=== PATIENT | female | born 1985 | race Two or more races ===

== ENCOUNTER 2024-10-31 22:29 | Inpatient (IN) | payer BC, OTHER ==
[~2024-10-31] VITALS: Ht 149.9 cm; Wt 67.1 kg
[2024-10-31] MEDS: hydrALAZINE HCL 20 MG/ML VL IV ONE (23:00)
[2024-10-31 23:18] LABS: Basophils # (auto) 0.1 10 ^3/uL (0-0.2); Basophils % (auto) 1.5 % (0.0-2.0); Eosinophils # (auto) 0.3 10 ^3/uL (0-0.8); Hematocrit 43.9 % (36.0-46.0); Hemoglobin 14.7 g/dL (12.2-16.2); Lymphocytes # (auto) 2.3 10 ^3/uL (0.4-5.4); Lymphocytes % (auto) 29.4 % (10.0-50.0); Mean Corpuscular Hemoglobin 28.3 pg (28.0-32.0); Mean Corpuscular Hgb Conc. 33.5 g/dL (32.0-36.0); Mean Corpuscular Volume 84.4 fL (80.0-100.0); Monocytes # (auto) 0.8 10 ^3/uL (0-1.3); Monocytes % (auto) 9.7 % (0.0-12.0); Neutrophils # (auto) 4.4 10 ^3/uL (1.6-8.6); Neutrophils % (auto) 55.4 % (37.0-80.0); Nucleated Red Blood Cells % 0.2 %; Platelet Count (auto) 272 10^3/uL (140-450); Red Cell Distribution Width 13.4 % (11.8-14.3); White Blood Cell 7.9 10^3/uL (4.4-10.8)
[2024-10-31 23:30] VITALS: PULSE 89; RESP 96; O2SAT 96
[2024-10-31 23:30] LABS: Alanine Aminotransferase 30 U/L (7-40); Anion Gap 9 (5-15); Aspartate Aminotransferase 14 U/L (13-40); BUN/Creatinine Ratio 18.1 (10.0-20.0); Blood Urea Nitrogen 13 mg/dL (9-23); Calcium 10.2 mg/dL (8.7-10.4); Carbon Dioxide 28 mmol/L (20-31); Chloride 104 mmol/L (98-107); Potassium 3.9 mmol/L (3.5-5.1); Sodium 141 mmol/L (136-145); Total Protein 7.4 g/dL (5.7-8.2)
[2024-10-31] MEDS: KETOROLAC TROMETH 30 MG/ML 1ML VIAL IV ONE (23:30)
[2024-10-31 23:31] LABS: Albumin 4.7 g/dL (3.2-4.8); Bilirubin, Total 0.4 mg/dL (0.2-1.0)
[2024-10-31 23:32] LABS: Alkaline Phosphatase 142 U/L (46-116); Glucose 255 mg/dL (74-106); Lipase 54 U/L (12-53)
--- NOTE | 2024-10-31 23:42 | DVH ---
CLINICAL HISTORY: abd pain TECHNIQUE: CT of the abdomen and pelvis was performed without intravenous contrast. This exam was per formed according to our departmental dose optimization program. Up-to-date CT equipment and radiation dose reduction techniques are utilized as appropriate. COMPARISON: None FINDINGS: Lower Thorax: There is a pneumatocele within the left lower lobe. The lungs are otherwise clear. Norm al-sized heart. Liver and Biliary system: Mild hepatomegaly with the right lobe of the liver measuring 19 cm cranioca udal. Otherwise grossly unremarkable liver. There is mild dilatation of the gallbladder measuring 4.3 cm transverse with cholelithiasis there is no biliary ductal dilatation Spleen: Unremarkable. Adrenal Glands and Kidneys: Unremarkable. Pancreas and Retroperitoneum: Unremarkable. Aorta and Major Vessels: Aortoiliac vessels are normal in caliber with trace calcified atheroscleroti c plaque. Bowel, Mesentery and Peritoneal space: Normal caliber small and large bowel. There is no free air or fluid collection. Pelvis: Unremarkable. Abdominal wall and Osseous Structures: No destructive osseous lesion. Minor lower thoracic and lumba r spondylosis. IMPRESSION: 1. Mild dilatation of the gallbladder with cholelithiasis. If there is clinical concern for acute ch olecystitis, correlate with right upper quadrant ultrasound. 2. Mild hepatomegaly.
[2024-11-01 00:35] LABS: Urine Amorphous Crystal FEW /hpf (None Seen); Urine Bacteria FEW /hpf (None Seen); Urine Blood 2+ /uL (Negative); Urine Clarity Clear (Clear); Urine Color Colorless (Yellow); Urine Protein, UAD Negative (Negative); Urine Specific Gravity 1.015 (1.001-1.035); Urine Squamous Epithelial Cell MOD /hpf (<5); Urine Urobilinogen Normal (Negative); Urine WBC 3 /HPF (0-5); Urine pH 6.5 (5.0-9.0)
--- NOTE | 2024-11-01 01:07 | ED.PDOC ---
HPI Comments Patient presents to the emergency department with right upper quadrant abdominal pain radiates to her back shoulder blade. States it started 1 hour ago. Reports having pus has been get a for dinner. No prior history of gallstones or cholelithiasis. Does report having appendix removed. Patient reports 10 10 pain nothing helps it. It having nausea and vomiting. Upon assessment patient was blood pressure is 230s over 120s. Patient reports no headache but having hard time focusing due to her abdominal pain. No prior history of hypertension or cardiac problems. Chief Complaint: Abdominal Pain Time Seen by MD: 22:39 Reviewed Notes: Nurses Notes Allergies: Coded Allergies: Morphine (Verified Allergy, Unknown, 10/31/24) Information Source: Patient Mode of Arrival: Ambulatory Past Medical History PAST MEDICAL HISTORY: Denies Surgical History: Appendectomy, Denies all surgeries [employer] MENDER History: No Pertinent [employer] M[employer]ER History Constitutional: denies: chills, diaphoresis, fatigue, fever, malaise, sweats, weakness, others EENTM: denies: blurred vision, double vision, ear bleeding, ear discharge, ear drainage, ear pain, ear ringing, eye pain, eye redness, hearing loss, mouth pain, mouth swelling, nasal discharge, nose bleeding, nose congestion, nose pain, photophobia, tearing, throat pain, throat swelling, voice changes, others Respiratory: denies: cough, hemoptysis, orthopnea, SOB at rest, shortness of breath, SOB with excertion, stridor, wheezing, others Cardiovascular: denies: chest pain, dizzy spells, diaphoresis, Dyspnea on exertion, edema, irregular heart beat, left arm pain, lightheadedness, palpitations, PND, syncope, others Gastrointestinal: reports: abdominal pain, nausea, vomiting; denies: abdomen distended, blood streaked bowels, constipated, diarrhea, dysphagia, difficulty swallowing, hematemesis, melena, poor appetite, poor fluid intake, rectal ble eding, rectal pain, others Genitourinary: denies: abnormal vagina bleeding, burning, dyspareunia, dysuria, flank pain, frequency, hematuria, incontinence, pain, , vagina discharge, urgency, others Neurological: denies: dizziness, fainting, headache, left sided numbness, left sided weakness, numbness, paresthesia, pre-existing deficit, right sided numbness, right sided weakness, seizure, speech problems, tingling, tremors, weakness, others Musculoskeletal: denies: back pain, gout, joint pain, joint swelling, muscle pain, muscle stiffness, neck pain, others Integumetry: denies: bruises, change in color, change in hair/nails, dryness, laceration, lesions, lumps, rash, wounds, others Allergic/Immunocompromised: denies: Difficulty Healing, Frequent Infections, Hives, Itching, others Hematologic/Lymphatic: denies: anemia, blood clots, easy bleeding, easy bruising, swollen glands, others Physical Exam General Appearance: Normal, Severe Distress HEENT: Normal ENT Inspection, Pharynx Normal, TMs Normal Neck: Full Range of Motion, Non-Tender, Normal, Normal Inspection Respiratory: Chest Non-Tender, Lungs Clear, No Accessory Muscle Use, No Respiratory Distress, Normal Breath Sounds Cardiovascular: No Edema, No JVD, No Murmur, No Gallop, Normal Peripheral Pulses, Regular Rate/Rhythm Breast Exam: Deferred Gastrointestinal: No Organomegaly, No Pulsatile Mass, Normal Bowel Sounds, RUQ (Tender to palpation), Soft Genitalia: Deferred Pelvic: Deferred Rectal: Deferred Extremities: No calf tenderness, Normal capillary refill, Normal inspection, Normal range of motion, Non-tender, No pedal edema Musculoskeletal : Apperance: Normal Neurologic: Alert, form stripper II-XII nml as Tested, No Motor Deficits, Normal Affect, Normal Mood, No Sensory Deficits Cerebellar Function: Normal Reflexes: Normal Skin: Dry, Normal Color, Warm Lymphatic: No Adenopathy Was a procedure done? Was a procedure done?: No CP Differential Dx Differential Diagnosis: Other Differential Diagnosis: HTN Essential, HTN Encephalopathy Differential Diagnosis: Aortic dissection, Chest Wall Pain, Cholelithiasis, Costochondritis X-Ray, Labs, Meds, VS Vital Signs Date Time Temp Pulse Resp B/P (MAP) Pulse Ox O2 Delivery O2 Flow Rate FiO2 10/31/24 23:00 125/90 10/31/24 22:54 68 10/31/24 22:46 98.2 76 20 229/128 (161) 100 98.2 Lab Test 11/01/24 00:12 10/31/24 23:04 10/31/24 22:45 Range/Units Troponin I High Sensitivity < 3 L < 3 L </=34 ng/L White Blood Count 7.9 4.4-10.8 10^3/uL Red Blood Count 5.20 4.0-5.20 10^6/uL Hemoglobin 14.7 12.2-16.2 g/dL Hematocrit 43.9 36.0-46.0 % Mean Corpuscular Volume 84.4 80.0-100.0 fL Mean Corpuscular Hemoglobin 28.3 28.0-32.0 pg Mean Corpuscular Hemoglobin Concent 33.5 32.0-36.0 g/dL Red Cell Distribution Width 13.4 11.8-14.3 % Platelet Count 272 140-450 10^3/uL Mean Platelet Volume 7.8 6.9-10.8 fL Neutrophils (%) (Auto) 55.4 37.0-80.0 % Lymphocytes (%) (Auto) 29.4 10.0-50.0 % Monocytes (%) (Auto) 9.7 0.0-12.0 % Eosinophils (%) (Auto) 4.0 0.0-7.0 % Basophils (%) (Auto) 1.5 0.0-2.0 % Neutrophils # (Auto) 4.4 1.6-8.6 10 ^3/uL Lymphocytes # (Auto) 2.3 0.4-5.4 10 ^3/uL Monocytes # (Auto) 0.8 0-1.3 10 ^3/uL Eosinophils # (Auto) 0.3 0-0.8 10 ^3/uL Basophils # (Auto) 0.1 0-0.2 10 ^3/uL Nucleated Red Blood Cells 0.2 % Sodium Level 141 136-145 mmol/L Potassium Level 3.9 3.5-5.1 mmol/L Chloride Level 104 98-107 mmol/L Carbon Dioxide Level 28 20-31 mmol/L Anion Gap 9 5-15 Blood Urea Nitrogen 13 9-23 mg/dL Creatinine 0.72 0.550-1.02 mg/dL Glomerular Filtration Rate Calc 108 >90 mL/min BUN/Creatinine Ratio 18.1 10.0-20.0 Serum Glucose 255 H 74-106 mg/dL Calcium Level 10.2 8.7-10.4 mg/dL Total Bilirubin 0.4 0.2-1.0 mg/dL Aspartate Amino Transferase (AST) 14 13-40 U/L Alanine Aminotransferase (ALT) 30 7-40 U/L Alkaline Phosphatase 142 H 46-116 U/L Total Protein 7.4 5.7-8.2 g/dL Albumin 4.7 3.2-4.8 g/dL Lipase 54 H 12-53 U/L Urine Color Colorless Yellow Urine Clarity Clear Clear Urine pH 6.5 5.0-9.0 Urine Specific [place] 1.015 1.001-1.035 Urine Protein Negative Negative Urine Ketones Negative Negative Urine Blood 2+ H Negative /uL Urine Nitrite Negative Negative Urine Bilirubin Negative Negative Urine Urobilinogen Normal Negative mg/dL Urine Leukocyte Esterase Negative Negative /uL Urine RBC 3 0 - 4 /hpf Urine Microscopic WBC 3 0-5 /HPF Urine Squamous Epithelial Cells Mod <5 /hpf Urine Amorphous Crystals Few None Seen /hpf Urine Bacteria Few H None Seen /hpf Urine Glucose 3+ H Normal mg/dL Current Medications Medications (Trade) Dose Ordered Sig/Maddison Route Start Time Stop Time Status Last Admin Hydralazine HCl (Apresoline Injection) 15 mg ONCE ONCE IV 10/31/24 23:00 10/31/24 23:01 DC 10/31/24 23:00 Ketorolac Tromethamine (Toradol Injection) 30 mg ONCE ONCE IV 10/31/24 23:30 10/31/24 23:34 DC 10/31/24 23:30 X-Ray, Labs, Meds, VS Comment Patient given 15 mg hydralazine with good effect Patient reports pain 6/10 after Toradol Patient will be admitted for hypertensive crisis, recommend cardiology consult in the morning Patient be given [place]orte five for pain relief Time of 1ST Reevaluation: 01:07 Reevaluation 1ST: Improved Patient Education/Counseling: Diagnosis, Treatment Family Education/Counseling: Diagnosis Departure 1 Departure Time of Disposition: 01:06 Impression: Primary Impression: Hypertensive crisis without congestive heart failure Additional Impression: Cholelithiasis Qualified Codes: K80.20 - Calculus of gallbladder without cholecystitis without obstruction Disposition: ADMITTED INPATIENT Condition: Stable Discharged With: Self Critical Care Note Critical Care Time?: No Stability Stability form required: No Heart Score Heart Score: Heart Score Response (Comments) Value History N/A 0 EKG N/A 0 Age N/A 0 Risk Factors N/A 0 Troponin N/A 0 Total 0 ABEBA GIORDANO Nov 01, 2024 01:07
[2024-11-01] MEDS: PANTOPRAZOLE 40 MG/10 ML VIAL INJ IV ONE (03:15)
[2024-11-01] MEDS: LISINOPRIL 5 MG TAB PO ONE (03:15)
[2024-11-01] MEDS ORDERED: ONDANSETRON HCL 4 MG/2 ML VIAL IV PRN (03:15)
[2024-11-01] MEDS ORDERED: DEXTROSE (50%) 50ML SYRG IV PRN (03:15)
[2024-11-01] MEDS: SODIUM CHLORIDE 0.9% 1,000 ML IV SCH (03:15)
[2024-11-01] MEDS: SODIUM CHLORIDE 0.9% 1,000 ML IV ONE (03:15)
[2024-11-01] MEDS ORDERED: HYDROcodone-ACET 5/325MG TAB PO PRN (03:15)
[2024-11-01] MEDS: KETOROLAC TROMETH 30 MG/ML 1ML VIAL IV ONE (03:15)
--- NOTE | 2024-11-01 03:28 | DVHHPRES ---
History of Present Illness Resident Creating Document: KRISTINE TAYLOR RESDIENT History of Present Illness 38-year-old female with past medical history of diabetes and hypertension came to the hospital due to abdominal pain since 1 hours before admission. She has right upper quadrant pain radiating into the back, counseled, 10/10, and burning in nature with no exacerbating or relieving factor. She also reports nausea. She denies, fever, chest pain, shortness of breath, or any bladder or bowel habits changes. She has history of diabetes type 2, previously was taking insulin, oral medicine and Ozempic but due to insurance changes taking no medicine at the moment. PMHx: Diabetes type 2 and hypertension PSHx: No significant Family history: Significant for premature coronary artery disease in father, and hypotension with diabetes in mother Social history: Drinks socially, denies any other drug use Home medication: Losartan, due to insurance changes has lost diabetic medicine (Ozempic) Allergic history: Morphine (upon using morphine develops hives and itching) Review of Systems Review of Systems General: patient denies fever, fatigue, weaknes, sweating, any recent changes in appetite and weight HEENT: No headaches, visiual changes, hearing loss, tinnitus, nasal congestion and discharge, and sore throat. Cardiovascular: Denies chest pain, palpitations, dyspnea on exertion, orthopnea, or claudication. Respiratory: No cough, and wheezing. Gastrointestinal: Reports nausea and abdominal pain Genitourinary: No dysuria, hematuria, discharge, frequency, urgency, nocturia, incontinence, and urinary retention. Endocrine: No heat or cold intolerance, polydipsia, polyuria, and polyphagia. Neurological: No dizziness, extremity weakness and numbness, tremors, gait disturbance, seizures, and memory impairment. Psychiatric: Denies depression, anxiety,or insomnia. Musculoskeletal: Denies neck pain, stiffness and swelling, back pain, muscle weakness, joint pain, stiffness, swelling, or limited range of motion. Skin: No rashes, itching, skin lesion, changes in hair, nail, skin texture and breast. Hematologic/Lymphatic: Denies easy bruising, bleeding tendencies, or lymph node enlargement. Allergies: Coded Allergies: Morphine (Verified Allergy, Unknown, 10/31/24) Medications Current Medications Medications Dose Ordered Sig/Maddison Route Start Time Stop Time Status Last Admin Dose Admin Acetaminophen/ Hydrocodone Bitart 1 tab Q4HP PRN PO 11/01/24 03:15 UNV Ondansetron HCl 4 mg Q4HP PRN IV 11/01/24 03:15 Enoxaparin Sodium 40 mg DAILY SC 11/01/24 10:00 Sodium Chloride 1,000 ml @ 75 mls/hr [id number] IV 11/01/24 03:15 Ketorolac Tromethamine 15 mg Q6HPRN PRN IV 11/01/24 03:15 11/06/24 03:14 Lisinopril 10 mg DAILY PO 11/02/24 10:00 Pantoprazole Sodium 40 mg DAILY IV 11/02/24 10:00 Diagnostic Test (Pha) 1 strip IQ4HR 11/01/24 04:00 Insulin Human Regular IQ4HR SC 11/01/24 04:00 Dextrose 50 ml UD PRN IV 11/01/24 03:15 Exam Vital Signs Vital Signs Date Time Temp Pulse Resp B/P (MAP) Pulse Ox O2 Delivery O2 Flow Rate FiO2 11/01/24 00:00 71 10/31/24 23:00 125/90 10/31/24 22:46 98.2 20 100 98.2 Exam General Appearance: Alert, Oriented X3, Cooperative, No acute distress HEENT: Atraumatic, PERRLA, EOMI, Mucous membrane moist/pink Respiratory: Clear to auscultation, Normal air movement Cardiovascular: Regular rate, Normal S1, Normal S2, No murmurs, no chest wall tenderness Abdominal: Abdominal tenderness with negative Olsen sign Extremities: No clubbing, No cyanosis, No edema, Normal pulses, No tenderness/swelling Skin: No rashes, No breakdown, No significant lesion Neuro: Normal gait, Normal speech, Strength at 5/5 X4 ext, Normal tone, Sensation intact, Cranial nerves 3-12 NL, Reflexes 2+ Psych/Mental Status: Mental status NL, Mood NL Labs/Xrays Labs Test 11/01/24 00:12 10/31/24 23:04 10/31/24 22:45 Range/Units Troponin I High Sensitivity < 3 L </=34 ng/L White Blood Count 7.9 4.4-10.8 10^3/uL Red Blood Count 5.20 4.0-5.20 10^6/uL Hemoglobin 14.7 12.2-16.2 g/dL Hematocrit 43.9 36.0-46.0 % Mean Corpuscular Volume 84.4 80.0-100.0 fL Mean Corpuscular Hemoglobin 28.3 28.0-32.0 pg Mean Corpuscular Hemoglobin Concent 33.5 32.0-36.0 g/dL Red Cell Distribution Width 13.4 11.8-14.3 % Platelet Count 272 140-450 10^3/uL Mean Platelet Volume 7.8 6.9-10.8 fL Neutrophils (%) (Auto) 55.4 37.0-80.0 % Lymphocytes (%) (Auto) 29.4 10.0-50.0 % Monocytes (%) (Auto) 9.7 0.0-12.0 % Eosinophils (%) (Auto) 4.0 0.0-7.0 % Basophils (%) (Auto) 1.5 0.0-2.0 % Neutrophils # (Auto) 4.4 1.6-8.6 10 ^3/uL Lymphocytes # (Auto) 2.3 0.4-5.4 10 ^3/uL Monocytes # (Auto) 0.8 0-1.3 10 ^3/uL Eosinophils # (Auto) 0.3 0-0.8 10 ^3/uL Basophils # (Auto) 0.1 0-0.2 10 ^3/uL Nucleated Red Blood Cells 0.2 % Sodium Level 141 136-145 mmol/L Potassium Level 3.9 3.5-5.1 mmol/L Chloride Level 104 98-107 mmol/L Carbon Dioxide Level 28 20-31 mmol/L Anion Gap 9 5-15 Blood Urea Nitrogen 13 9-23 mg/dL Creatinine 0.72 0.550-1.02 mg/dL Glomerular Filtration Rate Calc 108 >90 mL/min BUN/Creatinine Ratio 18.1 10.0-20.0 Serum Glucose 255 H 74-106 mg/dL Calcium Level 10.2 8.7-10.4 mg/dL Total Bilirubin 0.4 0.2-1.0 mg/dL Aspartate Amino Transferase (AST) 14 13-40 U/L Alanine Aminotransferase (ALT) 30 7-40 U/L Alkaline Phosphatase 142 H 46-116 U/L Total Protein 7.4 5.7-8.2 g/dL Albumin 4.7 3.2-4.8 g/dL Lipase 54 H 12-53 U/L Urine Color Colorless Yellow Urine Clarity Clear Clear Urine pH 6.5 5.0-9.0 Urine Specific [place] 1.015 1.001-1.035 Urine Protein Negative Negative Urine Ketones Negative Negative Urine Blood 2+ H Negative /uL Urine Nitrite Negative Negative Urine Bilirubin Negative Negative Urine Urobilinogen Normal Negative mg/dL Urine Leukocyte Esterase Negative Negative /uL Urine RBC 3 0 - 4 /hpf Urine Microscopic WBC 3 0-5 /HPF Urine Squamous Epithelial Cells Mod <5 /hpf Urine Amorphous Crystals Few None Seen /hpf Urine Bacteria Few H None Seen /hpf Urine Glucose 3+ H Normal mg/dL Assessment/Plan Assessment/Plan Symptomatic cholelithiasis Abdominal CT scan shows distended gallbladder with cholelithiasis, but no sign of cholecystitis Liver ultrasound Consult surgery NPO IV fluid Pain control Diabetes type 2 Moderate SS Hypertension Continue lisinopril Obesity, type 1 Consulted for lifestyle modification DIET: NPO DVT PROPHYLAXIS: Lovenox GI PROPHYLAXIS:: Protonix CODE STATUS: Goal of care discussed more than 19 minutes, full code DISPOSITION: Med/surge Patient's status and paln discussed with the patient. Case discussed with Dr. Givens. Plan discussed with: Patient, Other (RN) My Orders Orders - KRISTINE TAYLOR RESABNER Procedure Category Date Status Time Admit ADMIT 11/01/24 Transmitted 03:04 Code Status CODE 11/01/24 Transmitted 03:04 Vital Signs CHELY 11/01/24 In Process 03:04 Review Orders With CHELY 11/01/24 In Process Adm. 03:04 Npo (Nothing By DIET 11/01/24 Transmitted Mouth) Diet Breakfast Notify Of Changes CHELY 11/01/24 In Process From Base 03:04 Advance Directive CHELY 11/01/24 In Process 03:04 Lipid Panel LAB 11/01/24 Logged 03:04 Patient Condition ORDERS 11/01/24 Transmitted 03:04 Allergies CHELY 11/01/24 In Process 03:04 Hydrocodone-Acet PHA 11/01/24 Logged 5/325mg Tab ([place] 03:15 Ondansetron Hcl PHA 11/01/24 In Process (Zofran) 03:15 Drug Screen LAB 11/01/24 In Process 03:04 Hemoglobin A1c LAB 11/01/24 Logged 03:04 Enoxaparin Sodium PHA 11/01/24 In Process (Lovenox) 10:00 Stat Ekg For Chest CHELY 11/01/24 In Process Pain 03:04 Notify Of Changes CHELY 11/01/24 In Process From Base 03:04 Sodium Chloride 0.9% PHA 11/01/24 In Process 03:15 Sodium Chloride 0.9% PHA 11/01/24 In Process 03:15 Ketorolac Injection PHA 11/01/24 In Process (Toradol Injection) 03:15 Glucose Blood PHA 11/01/24 In Process (Accu-Chek Comfort 04:00 Insulin R (Human) PHA 11/01/24 In Process (Insulin R) 04:00 Dextrose 50% Syringe PHA 11/01/24 In Process 03:15 * Surgical Consult CONS 11/01/24 Transmitted Thyroid Stimulating LAB 11/01/24 Logged Hormone 03:04 LIVER US 11/01/24 Logged 03:04 Lisinopril Tablet PHA 11/02/24 In Process (Zestril Tablet) 10:00 Pantoprazole PHA 11/02/24 In Process (Protonix) 10:00 Date of Service: Nov 01, 2024 Billing Provider: JASIEL GIVENS MD Common Visit Codes: [id number] INP/OBS CARE (HIGH) KRISTINE TAYLOR RESABNER Nov 01, 2024 03:28 JASIEL GIVENS MD Nov 01, 2024 11:00
[2024-11-01 03:36] LABS: Amphetamine Screen, Urine Neg (NEGATIVE); Barbiturate Scree,Urine Neg (NEGATIVE); Benzodiazephine Screen, Urine Neg (NEGATIVE); Cocaine Screen, Urine Neg (NEGATIVE)
[2024-11-01 03:44] LABS: Cannabinoid Screen, Urine Neg (NEGATIVE); Opiate Scree,Urine Neg (NEGATIVE); Phencyclidine Screen, Urine Neg (NEGATIVE)
[2024-11-01] MEDS: ACCU-CHEK COMFORT CURVE STRIP VI SCH (04:00)
[2024-11-01] MEDS: InsuLIN REG 1unit/0.01ml Soln (100units/ml) SC SCH (04:00)
[2024-11-01 07:01] LABS: Triglycerides 147 mg/dL (< 150)
[2024-11-01 07:02] LABS: LDL Cholesterol 89 mg/dL (< 100)
[2024-11-01 07:03] LABS: Cholesterol 158 mg/dL (< 200)
[2024-11-01 07:05] LABS: HDL Cholesterol 60 mg/dL (40-59)
--- NOTE | 2024-11-01 07:11 | DVH ---
CLINICAL INFORMATION: 38 years old, Female; Cholilithiasis. TECHNIQUE: Grayscale sonographic imaging of the right upper quadrant of the abdomen was performed, a ssisted by color Doppler techniques. COMPARISON: None FINDINGS: The gallbladder wall measures 1.4 mm in thickness, within normal limits. Multiple small, shadowing, mobile gallstones are seen in the dependent portions of the gallbladder. Negative reporte d sonographic quintanilla's sign. The common bile duct measures 4.5 mm in diameter, within normal limits. The liver is mildly enlarged, measuring up to 17.4 cm in craniocaudal dimension. The pancreas is partly obscured, likely by bowel gas. The visualized portions appear normal. The right kidney measures 10.9 cm. There is no hydronephrosis. Right renal cortical echogenicity a nd cortical thickness are within normal limits. IMPRESSION: 1. Cholelithiasis. No sonographic evidence of acute cholecystitis. 2. Mild hepatomegaly.
[2024-11-01 07:39] VITALS: PULSE 74; RESP 18; O2SAT 97
[2024-11-01 08:14] VITALS: BP 136/83; PULSE 5; PULSE 69; RESP 18; TEMP 98.8; O2SAT 98; O2SAT 99
[2024-11-01 08:22] VITALS: BP 136/83; PULSE 69; RESP 18; TEMP 98.8; O2SAT 98
[2024-11-01] MEDS: KETOROLAC TROMETH 30 MG/ML 1ML VIAL IV PRN (08:48)
[2024-11-01] MEDS: ENOXAPARIN SOD 40 MG/0.4 ML SYRINGE SC SCH (08:49)
[2024-11-01] MEDS ORDERED: CHOL1CAP21 PO (08:55)
[2024-11-01] MEDS ORDERED: LOS25T PO (08:55)
--- NOTE | 2024-11-01 10:59 | ECG ---
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
--- NOTE | 2024-11-01 11:33 | DVHPNRES ---
Progress Note Date Seen: Nov 01, 2024 Resident Creating Document: JABARI CALI RESIDENT Medical Necessity Reason Pt with a Central, PICC or Fol: No Subjective Review of Systems History of Present Illness 38-year-old female with past medical history of diabetes and hypertension came to the hospital due to abdominal pain for a few hours prior to admission. Patient reports right upper quadrant pain radiating into the back, constant, 10/10, and burning in nature with no exacerbating or relieving factor. She also reports nausea. She denies, fever, chest pain, shortness of breath, or any bladder or bowel habits changes. She has history of diabetes type 2, previously was taking insulin, oral antihyperglycemics and Ozempic but due to insurance changes taking no medicine at the moment. PMHx: Diabetes type 2 and hypertension PSHx: None Family history: Significant for premature coronary artery disease in father, and hypotension with diabetes in mother Social history: Drinks socially, denies any other drug use Home medication: Losartan, due to insurance changes has lost diabetic medicine (Ozempic) Allergic history: Morphine (upon using morphine develops hives and itching) Review of systems Patient seen and examined at the bedside Reports abdominal pain has improved Denies nausea, vomiting, diarrhea or constipation Objective vital signs Vital Sign Date Time Temp Pulse Resp B/P (MAP) Pulse Ox O2 Delivery O2 Flow Rate FiO2 11/01/24 08:22 98.8 69 18 136/83 (100) 98 98.8 11/01/24 07:39 Room Air* 0 21 medications Current Medications Medications Dose Ordered Sig/Maddison Route Start Time Stop Time Status Last Admin Dose Admin Acetaminophen/ Hydrocodone Bitart 1 tab Q4HP PRN PO 11/01/24 03:15 Hold Ondansetron HCl 4 mg Q4HP PRN IV 11/01/24 03:15 Enoxaparin Sodium 40 mg DAILY SC 11/01/24 10:00 11/01/24 08:49 40 MG Sodium Chloride 1,000 ml @ 75 mls/hr [id number] IV 11/01/24 03:15 11/01/24 03:15 75 MLS/HR Ketorolac Tromethamine 15 mg Q6HPRN PRN IV 11/01/24 03:15 11/06/24 03:14 11/01/24 08:48 15 MG Lisinopril 10 mg DAILY PO 11/02/24 10:00 Pantoprazole Sodium 40 mg DAILY IV 11/02/24 10:00 Diagnostic Test (Pha) 1 strip IQ4HR 11/01/24 04:00 11/01/24 04:00 1 STRIP Insulin Human Regular IQ4HR SC 11/01/24 04:00 Dextrose 50 ml UD PRN IV 11/01/24 03:15 Examination Constitutional: Patient was alert and oriented to time, place and person and does not appear to be in acute distress Gen - no pallor, no icterus, no cyanosis, no clubbing, no LAD, no edema . Skin - Patients skin is warm and dry. HEENT - normocephalic, atraumatic, moist mucous membranes. Neck - full ROM, no LAD Pulmonary - B/L equal air entry, no crackles , no wheezing, no stridor. cardiovascular - normal S1,S2 heard. no murmurs heard. GI - soft abdomen with minimal tenderness to deep palpation in the right upper quadrant. Olsen's negative . no hepatospleenomegaly. Bowel sounds normoactive Neurological - Bilateral upper extremity strength 5/5, bilateral lower extremity strength 5/5, no facial droop, normal speech, no tremor, no sensory deficiets. laboratory and microbiology Laboratory Tests 10/31/24 23:04 Test 10/31/24 23:04 Range/Units Serum Glucose 255 H 74-106 mg/dL Problem List/Assessment/Plan Problem List/Assessment/Plan # cholelithiasis # biliary colic # ? Acute cholecystitis - CT abd pelvis without contrast showed IMPRESSION: 1. Mild dilatation of the gallbladder with cholelithiasis. 2. Mild hepatomegaly. - surgery consulted and patient to be taken for laparoscopic possible open cholecystectomy - NPO after midnight # type 2 diabetes mellitus with hyperglycemia - HbA1c 6.7% - on insulin sliding scale # uncontrolled hypertension - on losartan 25 mg Goals of care discussed with the patient for over 25 minutes. Full code Plan discussed with Dr. Horn Plan discussed with: Patient Date of Service: Nov 01, 2024 Billing Provider: MIHAI HORN MD Common Visit Codes: [id number] INP/OBS CARE(HIGH) JABARI CALI RESIDENT Nov 01, 2024 11:33 MIHAI HORN MD Nov 01, 2024 15:51
--- NOTE | 2024-11-01 12:12 | DVHINCON2 ---
Date of service: Nov 01, 2024 History of Present Illness 38-year-old diabetic female complaining of one day history of right upper quadrant abdominal pain associated with nausea and vomiting. Past Medical History Hypertension. Diabetes. Past Surgical History . Appendectomy. Family History: Cardiovascular disease G8 FATHER, Diabetes mellitus G8 MOTHER Hypertension G8 MOTHER Family History Noncontributory Social History Denies alcohol, tobacco, IV drug use Allergies: Coded Allergies: Morphine (Verified Allergy, Unknown, 10/31/24) Home Meds Reported Medications Losartan Potassium (Losartan Potassium) 25 Mg Tab, 1 TAB PO DAILY 11/01/24 Cholecalciferol (Vitamin D3) 50,000 Unit Cap, 1 CAP PO QWEEKLY 11/01/24 Current Medications Current Medications Medications (Trade) Dose Ordered Sig/Maddison Route PRN Reason Start Time Stop Time Status Last Admin Acetaminophen/ Hydrocodone Bitart ([place] 5/325MG Tab) 1 tab Q4HP PRN PO MODERATE PAIN (4-6 PAIN SCALE) 11/01/24 03:15 Hold Ondansetron HCl (Zofran) 4 mg Q4HP PRN IV NAUSEA / VOMITING 11/01/24 03:15 Enoxaparin Sodium (Lovenox) 40 mg DAILY SC 11/01/24 10:00 11/01/24 08:49 Sodium Chloride 1,000 ml @ 75 mls/hr [id number] IV 11/01/24 03:15 11/01/24 03:15 Ketorolac Tromethamine (Toradol Injection) 15 mg Q6HPRN PRN IV MODERATE PAIN (4-6 PAIN SCALE) 11/01/24 03:15 11/06/24 03:14 11/01/24 08:48 Lisinopril (Zestril Tablet) 10 mg DAILY PO 11/02/24 10:00 Pantoprazole Sodium (Protonix) 40 mg DAILY IV 11/02/24 10:00 Diagnostic Test (Pha) (Accu-Chek Comfort Curve T) 1 strip IQ4HR 11/01/24 04:00 11/01/24 04:00 Insulin Human Regular (InsuLIN R) IQ4HR SC 11/01/24 04:00 Dextrose 50 ml UD PRN IV Blood Sugar LESS THAN 60 11/01/24 03:15 Vital Signs Vital Signs Date Time Temp Pulse Resp B/P (MAP) Pulse Ox O2 Delivery O2 Flow Rate FiO2 11/01/24 08:22 98.8 69 18 136/83 (100) 98 98.8 11/01/24 07:39 Room Air* 0 21 Physical Exam GEN: Age-appropriate female in no acute distress. Alert. HEENT: Normocephalic atraumatic. Moist mucous membranes. Anicteric sclerae. CV: RRR Respiratory: CTAB ABD: Localized right upper quadrant tenderness to palpation with localized guarding. Nondistended. Abdominal ultrasound: Gallstones with normal common bile duct and 4.5 mm. Labs/Diagnostic Data Labs Test 11/01/24 11:57 11/01/24 05:55 11/01/24 00:12 10/31/24 23:04 Range/Units POC Glucose 114 H 70-106 mg/dl Hemoglobin A1c 6.7 H <5.7 % A1C Triglycerides Level 147 < 150 mg/dL Cholesterol Level 158 < 200 mg/dL LDL Cholesterol 89 < 100 mg/dL HDL Cholesterol 60 H 40-59 mg/dL Thyroid Stimulating Hormone (TSH) 1.03 0.55-4.78 uIU/mL Troponin I High Sensitivity < 3 L </=34 ng/L White Blood Count 7.9 4.4-10.8 10^3/uL Red Blood Count 5.20 4.0-5.20 10^6/uL Hemoglobin 14.7 12.2-16.2 g/dL Hematocrit 43.9 36.0-46.0 % Mean Corpuscular Volume 84.4 80.0-100.0 fL Mean Corpuscular Hemoglobin 28.3 28.0-32.0 pg Mean Corpuscular Hemoglobin Concent 33.5 32.0-36.0 g/dL Red Cell Distribution Width 13.4 11.8-14.3 % Platelet Count 272 140-450 10^3/uL Mean Platelet Volume 7.8 6.9-10.8 fL Neutrophils (%) (Auto) 55.4 37.0-80.0 % Lymphocytes (%) (Auto) 29.4 10.0-50.0 % Monocytes (%) (Auto) 9.7 0.0-12.0 % Eosinophils (%) (Auto) 4.0 0.0-7.0 % Basophils (%) (Auto) 1.5 0.0-2.0 % Neutrophils # (Auto) 4.4 1.6-8.6 10 ^3/uL Lymphocytes # (Auto) 2.3 0.4-5.4 10 ^3/uL Monocytes # (Auto) 0.8 0-1.3 10 ^3/uL Eosinophils # (Auto) 0.3 0-0.8 10 ^3/uL Basophils # (Auto) 0.1 0-0.2 10 ^3/uL Nucleated Red Blood Cells 0.2 % Sodium Level 141 136-145 mmol/L Potassium Level 3.9 3.5-5.1 mmol/L Chloride Level 104 98-107 mmol/L Carbon Dioxide Level 28 20-31 mmol/L Anion Gap 9 5-15 Blood Urea Nitrogen 13 9-23 mg/dL Creatinine 0.72 0.550-1.02 mg/dL Glomerular Filtration Rate Calc 108 >90 mL/min BUN/Creatinine Ratio 18.1 10.0-20.0 Serum Glucose 255 H 74-106 mg/dL Calcium Level 10.2 8.7-10.4 mg/dL Total Bilirubin 0.4 0.2-1.0 mg/dL Aspartate Amino Transferase (AST) 14 13-40 U/L Alanine Aminotransferase (ALT) 30 7-40 U/L Alkaline Phosphatase 142 H 46-116 U/L Total Protein 7.4 5.7-8.2 g/dL Albumin 4.7 3.2-4.8 g/dL Lipase 54 H 12-53 U/L Test 10/31/24 22:45 Range/Units Urine Color Colorless Yellow Urine Clarity Clear Clear Urine pH 6.5 5.0-9.0 Urine Specific [place] 1.015 1.001-1.035 Urine Protein Negative Negative Urine Ketones Negative Negative Urine Blood 2+ H Negative /uL Urine Nitrite Negative Negative Urine Bilirubin Negative Negative Urine Urobilinogen Normal Negative mg/dL Urine Leukocyte Esterase Negative Negative /uL Urine RBC 3 0 - 4 /hpf Urine Microscopic WBC 3 0-5 /HPF Urine Squamous Epithelial Cells Mod <5 /hpf Urine Amorphous Crystals Few None Seen /hpf Urine Bacteria Few H None Seen /hpf Urine Glucose 3+ H Normal mg/dL Urine Opiates Screen Neg NEGATIVE Urine Fentanyl Screen Neg NEGATIVE Urine Barbiturates Screen Neg NEGATIVE Urine Phencyclidine Screen Neg NEGATIVE Urine Amphetamines Screen Neg NEGATIVE Urine Benzodiazepines Screen Neg NEGATIVE Urine Cocaine Screen Neg NEGATIVE Urine Cannabinoids Screen Neg NEGATIVE Assessment 1. Cholecystitis Plan/Recommendation 1. Laparoscopic cholecystectomy possible open surgery Informed consent: The surgery and its risks including but not limited to inf ection, bleeding requiring possible blood transfusion with the risk of hepatitis or HIV infection, possible open surgery, possible cystic duct leak or retained common bile duct stone requiring further intervention such as an ERCP, possible perioperative [place] or stroke were explained to the patient. All questions were answered to her satisfaction. She expressed verbal understanding and wished to proceed with the surgery. Plan discussed with: Patient ANGEL RODRIGUEZ MD Nov 01, 2024 12:12
[2024-11-01 12:28] VITALS: BP 151/90; PULSE 68; RESP 20; TEMP 98.4; O2SAT 98
[2024-11-01 13:12] LABS: INR 1.03 (0.9-1.15); Partial Thromboplastin Time 29.1 SEC (24.5-34.5); Prothrombin Time 10.9 sec (9.3-11.8)
[2024-11-01] MEDS: LOSARTAN POTASSIUM 25 MG TAB PO ONE (13:14)
--- NOTE | 2024-11-01 15:00 | ECG ---
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
[2024-11-01 16:04] VITALS: BP 125/76; PULSE 50; RESP 17; TEMP 97.9; O2SAT 99
[2024-11-01 21:00] VITALS: BP 141/78; PULSE 76; RESP 17; TEMP 98.3; O2SAT 96
[2024-11-02] VITALS (8 sets, daily range): BP systolic 133–149; BP diastolic 68–86; PULSE 62–81; RESP 12–22; TEMP 97.8–98.4; O2SAT 91–99
[2024-11-02 06:25] LABS: Basophils # (auto) 0.2 10 ^3/uL (0-0.2); Basophils % (auto) 3.2 % (0.0-2.0); Eosinophils # (auto) 0.3 10 ^3/uL (0-0.8); Eosinophils % (auto) 4.9 % (0.0-7.0); Hematocrit 42.3 % (36.0-46.0); Hemoglobin 14.2 g/dL (12.2-16.2); Mean Corpuscular Hgb Conc. 33.5 g/dL (32.0-36.0); Mean Corpuscular Volume 83.5 fL (80.0-100.0); Monocytes # (auto) 0.7 10 ^3/uL (0-1.3); Monocytes % (auto) 10.3 % (0.0-12.0); Neutrophils # (auto) 3.5 10 ^3/uL (1.6-8.6); Neutrophils % (auto) 51.6 % (37.0-80.0); Nucleated Red Blood Cells % 0.1 %; Platelet Count (auto) 266 10^3/uL (140-450); Red Blood Cells 5.06 10^6/uL (4.0-5.20); Red Cell Distribution Width 13.4 % (11.8-14.3); White Blood Cell 6.7 10^3/uL (4.4-10.8)
[2024-11-02 06:51] LABS: Alanine Aminotransferase 30 U/L (7-40); Alkaline Phosphatase 75 U/L (46-116); Anion Gap 10 (5-15); Aspartate Aminotransferase 29 U/L (13-40); BUN/Creatinine Ratio 12.3 (10.0-20.0); Calcium 8.9 mg/dL (8.7-10.4); Carbon Dioxide 21 mmol/L (20-31); Potassium 3.8 mmol/L (3.5-5.1); Sodium 141 mmol/L (136-145); Total Protein 6.4 g/dL (5.7-8.2)
[2024-11-02 06:52] LABS: Bilirubin, Total 0.8 mg/dL (0.2-1.0)
[2024-11-02 06:54] LABS: Blood Urea Nitrogen 8 mg/dL (9-23); Chloride 110 mmol/L (98-107); Glucose 108 mg/dL (74-106)
[2024-11-02] MEDS ORDERED: LISINOPRIL 5 MG TAB PO SCH (10:00)
[2024-11-02] MEDS: PANTOPRAZOLE 40 MG/10 ML VIAL INJ IV SCH (10:11)
[2024-11-02] MEDS: LOSARTAN POTASSIUM 25 MG TAB PO SCH (10:11)
[2024-11-02] MEDS ORDERED: HYDROmorphone HCL 2 MG/ML VL/or syr IV PRN ×2 (11:15→14:15)
[2024-11-02] MEDS ORDERED: MIDAZOLAM HCL 2MG/2ML 2ml VIAL (1mg/ml) ONE (11:22)
[2024-11-02] MEDS ORDERED: DexAMETHasone SOD PHOS 10MG/1ML VIAL INJ ONE (11:22)
[2024-11-02] MEDS ORDERED: SODIUM CHLORIDE LOCK 10 ML ONE (11:22)
[2024-11-02] MEDS ORDERED: LIDOCAINE HCL 2% TOP JELLY 5ML TOP ONE (11:22)
[2024-11-02] MEDS ORDERED: HYDROmorphone HCL 2 MG/ML VL/or syr ONE (11:22)
[2024-11-02] MEDS ORDERED: LIDOCAINE 1% INJ PF 5ML AMP ONE (11:22)
[2024-11-02] MEDS ORDERED: fentaNYL CITRATE 100 MCG/2 ML VL ONE (11:22)
[2024-11-02] MEDS ORDERED: ONDANSETRON HCL 4 MG/2 ML VIAL ONE (11:22)
[2024-11-02] MEDS ORDERED: KETAMINE 50mg/ML 1ml syringe ONE (11:22)
[2024-11-02] MEDS ORDERED: SUGAMMADEX 200mg/2ml Vial (100MG/ML) IV ONE (13:02)
[2024-11-02] MEDS: LIDOCAINE W/ EPINEPHRINE 1% 20ML VIAL ONE (13:11)
--- NOTE | 2024-11-02 13:12 | DVHPNRES ---
Progress Note Date Seen: Nov 02, 2024 Resident Creating Document: JABARI CALI RESIDENT Medical Necessity Reason Pt with a Central, PICC or Fol: No Subjective Review of Systems patient seen and examined at the bedside NPO since midnight and had intermittant mild RUQ pain denies nausea or any episode of vomiting due for surgery today in the afternoon Objective vital signs Vital Sign Date Time Temp Pulse Resp B/P (MAP) Pulse Ox O2 Delivery O2 Flow Rate FiO2 11/02/24 12:59 98.2 72 16 133/86 (102) 97 98.2 11/02/24 11:55 Room Air* 0 21 Total Intake and Output 11/01/24 11/01/24 11/02/24 15:00 23:00 07:00 Intake Total 720 ml 540 ml Balance 720 ml 540 ml medications Current Medications Medications Dose Ordered Sig/Maddison Route Start Time Stop Time Status Last Admin Dose Admin Acetaminophen/ Hydrocodone Bitart 1 tab Q4HP PRN PO 11/01/24 03:15 Hold Ondansetron HCl 4 mg Q4HP PRN IV 11/01/24 03:15 Sodium Chloride 1,000 ml @ 75 mls/hr [id number] IV 11/01/24 03:15 11/02/24 05:55 75 MLS/HR Ketorolac Tromethamine 15 mg Q6HPRN PRN IV 11/01/24 03:15 11/06/24 03:14 11/01/24 08:48 15 MG Pantoprazole Sodium 40 mg DAILY IV 11/02/24 10:00 11/02/24 10:11 40 MG Diagnostic Test (Pha) 1 strip IQ4HR 11/01/24 04:00 11/02/24 11:49 1 STRIP Insulin Human Regular IQ4HR SC 11/01/24 04:00 11/01/24 20:42 3 UNITS Dextrose 50 ml UD PRN IV 11/01/24 03:15 Losartan Potassium 25 mg DAILY PO 11/02/24 10:00 11/02/24 10:11 25 MG Morphine Sulfate 2 mg Q4H PRN IV 11/02/24 11:15 11/02/24 15:16 Examination Constitutional: Patient was alert and oriented to time, place and person and does not appear to be in acute distress Gen - no pallor, no icterus, no cyanosis, no clubbing, no LAD, no edema . Skin - Patients skin is warm and dry. HEENT - normocephalic, atraumatic, moist mucous membranes. Neck - full ROM, no LAD Pulmonary - B/L equal air entry, no crackles , no wheezing, no stridor. cardiovascular - normal S1,S2 heard. no murmurs heard. GI - soft abdomen with minimal tenderness to deep palpation in the right upper quadrant. Olsen's negative . no hepatospleenomegaly. Bowel sounds normoactive Neurological - Bilateral upper extremity strength 5/5, bilateral lower extremity strength 5/5, no facial droop, normal speech, no tremor, no sensory deficiets. laboratory and microbiology Laboratory Tests 11/02/24 06:03 Test 11/02/24 06:03 Range/Units Serum Glucose 108 H 74-106 mg/dL Problem List/Assessment/Plan Problem List/Assessment/Plan # cholelithiasis # biliary colic # ? Acute cholecystitis - CT abd pelvis without contrast showed IMPRESSION: 1. Mild dilatation of the gallbladder with cholelithiasis. 2. Mild hepatomegaly. - surgery consulted and patient to be taken for laparoscopic possible open cholecystectomy - scheduled for surgery today - will be reassesed and might be started on clear liquid diet for dinner # type 2 diabetes mellitus with hyperglycemia - HbA1c 6.7% - on insulin sliding scale # uncontrolled hypertension - on losartan 25 mg Goals of care discussed with the patient for over 25 minutes. Full code Plan discussed with Dr. Horn Plan discussed with: Patient Date of Service: Nov 02, 2024 Billing Provider: MIHAI HORN MD Common Visit Codes: [id number] INP/OBS CARE(HIGH) JABARI CALI RESIDENT Nov 02, 2024 13:12 MIHAI HORN MD Nov 02, 2024 15:29
[2024-11-02] MEDS: ceFAZolin 2 GM/D5W100ml 100 ML IV ONE (13:32)
[2024-11-02] MEDS: BUPIVACAINE W/ EPINEPH 0.5% MPF 30ML VIAL IJ ONE (13:32)
[2024-11-02] MEDS: MORPHINE SULFATE 4 MG/ML SYR/VIAL IV PRN (13:32)
[2024-11-02] MEDS: ROCURONIUM 10MG/ML 10ML VIAL IV ONE (13:33)
[2024-11-02] MEDS: DOXAPRAM HCL 20 MG/ML 20ML VIAL INJ IV ONE (13:33)
[2024-11-02] MEDS: SUCCINYLCHOLINE CHLORIDE 20 MG/ML 10ML VIAL IV ONE (13:33)
[2024-11-02] MEDS: KETOROLAC TROMETH 30 MG/ML 1ML VIAL IV ONE (13:37)
[2024-11-02] MEDS: METOCLOPRAMIDE HCL 5MG/ml INJ 2ml VIAL IV ONE (13:37)
[2024-11-02] MEDS: HYDROmorphone HCL 2 MG/ML VL/or syr IV PRN (13:45)
[2024-11-02] MEDS ORDERED: hydrALAZINE HCL 20 MG/ML VL IV ONE (13:50)
--- NOTE | 2024-11-02 14:24 | DVHOP2 ---
Operative Report - 2 Report Details Date: 11/02/24 Preop Diagnosis: 1. Cholecystitis Postop Diagnosis: 1. 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 All questions were answered to her satisfaction. She expressed verbal understanding and wished to proceed with the surgery. Complications: None Estimated Blood Loss: 10 mL Fluids: 600 mL Name of Procedure Performed Laparoscopic cholecystectomy Procedure Details Procedure Details: After induction of general anesthesia, patient's abdomen was prepped and draped in standard surgical fashion. A small infraumbilical incision was made and this incision was taken through the abdominal wall down to the fascia which was opened sharply. Peritoneum was then bluntly divided gaining access to the intra-abdominal cavity. Interrupted 0 Vicryl sutures were placed through the fascial incision and using an open technique, Yi trocar was introduced and secured using the Vicryl sutures. Abdomen was insufflated to 15 mmHg and camera was inserted. Visual examination of the intestine under the fascial incision appeared normal without injury. Under direct visualization, a 5 mm bladeless trocar was placed in the subxiphoid region and two additional 5 mm bladeless trocars were placed in the right upper quadrant all under direct visualization. Examination of the right upper quadrant revealed edematous and distended gallbladder. An endo needle was used to 1st decompress the gallbladder with bilious drainage. Once the gallbladder was decompressed, it was grasped and retracted in a cephalad direction. Infundibulum was retracted laterally and careful blunt dissection was performed to identify the cystic duct which appeared normal in size. This was clipped and divided using Endoclips without complication. Cystic artery was located just next to the cystic duct and this was also clipped and divided using Endoclips without complication. Gallbladder was then removed from the liver bed using electrocautery. There was no bile or stone spillage during the maneuver. Gallbladder was then removed from the abdominal cavity using an endo pouch bag and sent off the surgical field. Abdomen was then re-insufflated and hemostasis in the liver bed was achieved using electrocautery. Right upper quadrant was then well irrigated until fluid was clear. Trocars were then removed under direct visualization as the abdomen was deflated. Additional interrupted 0 Vicryl sutures were placed through the infraumbilical fascial incision and the sutures were tied down closing off the infraumbilical fascia. Surgical sites were irrigated injected with 20 mL of 1% lidocaine with epinephrine. Skin incisions were closed using 4-0 Monocryl sutures in subcuticular fashion. Surgical sites were cleaned and dried and dressings were applied. Sponge, needle, instrument count at the end of the case were reported to be correct by the nursing staff. The patient tolerated procedure well and was awakened, extubated and transferred to recovery in stable condition. Specimen: Gallbladder Condition Stable Disposition Still a Patient ANGEL BOOKER MD Nov 02, 2024 14:24
[2024-11-03 01:00] VITALS: BP 134/70; PULSE 71; RESP 20; TEMP 98.4; O2SAT 96
[2024-11-03 05:00] VITALS: BP 147/84; PULSE 79; RESP 18; TEMP 98.1; O2SAT 94
[2024-11-03 06:11] LABS: Basophils # (auto) 0.1 10 ^3/uL (0-0.2); Basophils % (auto) 0.9 % (0.0-2.0); Eosinophils # (auto) 0.2 10 ^3/uL (0-0.8); Eosinophils % (auto) 2.5 % (0.0-7.0); Hematocrit 35.6 % (36.0-46.0); Hemoglobin 12.5 g/dL (12.2-16.2); Lymphocytes # (auto) 1.5 10 ^3/uL (0.4-5.4); Mean Corpuscular Hemoglobin 29.1 pg (28.0-32.0); Mean Corpuscular Volume 83.3 fL (80.0-100.0); Monocytes # (auto) 0.7 10 ^3/uL (0-1.3); Monocytes % (auto) 9.4 % (0.0-12.0); Neutrophils # (auto) 5.1 10 ^3/uL (1.6-8.6); Neutrophils % (auto) 67.2 % (37.0-80.0); Platelet Count (auto) 230 10^3/uL (140-450); Red Blood Cells 4.28 10^6/uL (4.0-5.20); Red Cell Distribution Width 13.5 % (11.8-14.3); White Blood Cell 7.7 10^3/uL (4.4-10.8)
[2024-11-03 06:33] LABS: Alanine Aminotransferase 36 U/L (7-40); Albumin 3.7 g/dL (3.2-4.8); Alkaline Phosphatase 62 U/L (46-116); Anion Gap 7 (5-15); Aspartate Aminotransferase 31 U/L (13-40); BUN/Creatinine Ratio 12.9 (10.0-20.0); Bilirubin, Total 0.8 mg/dL (0.2-1.0); Calcium 8.7 mg/dL (8.7-10.4); Carbon Dioxide 24 mmol/L (20-31); Sodium 141 mmol/L (136-145); Total Protein 5.7 g/dL (5.7-8.2)
[2024-11-03 06:34] LABS: Blood Urea Nitrogen 8 mg/dL (9-23); Chloride 110 mmol/L (98-107); Glucose 111 mg/dL (74-106); Potassium 3.4 mmol/L (3.5-5.1)
[2024-11-03 09:00] VITALS: BP 164/85; PULSE 70; RESP 20; TEMP 98.7; O2SAT 97
[2024-11-03] MEDS: POTASSIUM EFFERVESENT TAB 25 MEQ PO ONE (12:44)
[2024-11-03 13:00] VITALS: BP 166/98; PULSE 83; RESP 18; TEMP 97.9; O2SAT 99
[2024-11-03] MEDS: LOSARTAN POTASSIUM 25 MG TAB PO ONE (13:42)
--- NOTE | 2024-11-03 14:48 | DVHPN2 ---
Progress Note - Dictate Date Seen: Nov 03, 2024 Medical Necessity Reason Pt with a Central, PICC or Fol: No Subjective E: no major events o/n. no complaints. vital signs Vital Sign Date Time Temp Pulse Resp B/P (MAP) Pulse Ox O2 Delivery O2 Flow Rate FiO2 11/03/24 13:42 163/92 11/03/24 13:00 97.9 83 18 99 97.9 11/03/24 08:00 Room Air* 0 21 Total Intake and Output 11/02/24 11/02/24 11/03/24 15:00 23:00 07:00 Intake Total 100 ml 600 ml 900 ml Balance 100 ml 600 ml 900 ml medications Current Medications Medications Dose Ordered Sig/Maddison Route Start Time Stop Time Status Last Admin Dose Admin Acetaminophen/ Hydrocodone Bitart 1 tab Q4HP PRN PO 11/01/24 03:15 Hold Ondansetron HCl 4 mg Q4HP PRN IV 11/01/24 03:15 Sodium Chloride 1,000 ml @ 75 mls/hr [id number] IV 11/01/24 03:15 11/02/24 19:15 75 MLS/HR Ketorolac Tromethamine 15 mg Q6HPRN PRN IV 11/01/24 03:15 11/06/24 03:14 11/03/24 09:18 15 MG Pantoprazole Sodium 40 mg DAILY IV 11/02/24 10:00 11/03/24 09:17 40 MG Diagnostic Test (Pha) 1 strip IQ4HR 11/01/24 04:00 11/03/24 12:11 1 STRIP Insulin Human Regular IQ4HR SC 11/01/24 04:00 11/02/24 17:58 3 UNITS Dextrose 50 ml UD PRN IV 11/01/24 03:15 Losartan Potassium 25 mg DAILY PO 11/02/24 10:00 11/03/24 09:17 25 MG objective GEN: NAD ABD: surgical incisions clean and dry. laboratory and microbiology Laboratory Tests 11/03/24 05:35 Test 11/03/24 05:35 Range/Units Serum Glucose 111 H 74-106 mg/dL Assessment/Plan A: 1 s/p lap cholecystectomy POD #1 doing well. P: 1. stable from surgery POV. 2. f/u in clinic in 1-2 weeks. call [phone] for f/u appt. Plan discussed with: Patient ANGEL RODRIGUEZ MD Nov 03, 2024 14:48
[2024-11-03 17:00] VITALS: BP 180/103; PULSE 82; RESP 16; TEMP 98.5; O2SAT 97
[2024-11-03] MEDS: NIFEdipine 10 MG CAP PO ONE (17:40)
[2024-11-03] MEDS ORDERED: NIFE1TAB31 PO (21:11)
[2024-11-03] MEDS ORDERED: LOSA-534 PO (21:11)
--- NOTE | 2024-11-03 21:31 | DVHDSRES ---
Discharge Summary Date of Admission Resident Creating Document: JABARI CALI RESIDENT Nov 01, 2024 at 03:04 Date of Discharge: Nov 03, 2024 Admitting Diagnosis Symptomatic cholelithiasis Diabetes type 2 Hypertension Obesity, type 1 Wounds: s/p lap cholecystectomy with 3 port wounds covered in sterile dressing Labs/Diagnostic Data: Laboratory Results Test 11/03/24 11:47 11/03/24 05:35 11/01/24 21:00 11/01/24 12:29 POC Glucose 129 mg/dl (70-106) White Blood Count 7.7 10^3/uL (4.4-10.8) Red Blood Count 4.28 10^6/uL (4.0-5.20) Hemoglobin 12.5 g/dL (12.2-16.2) Hematocrit 35.6 % (36.0-46.0) Mean Corpuscular Volume 83.3 fL (80.0-100.0) Mean Corpuscular Hemoglobin 29.1 pg (28.0-32.0) Mean Corpuscular Hemoglobin Concent 35.0 g/dL (32.0-36.0) Red Cell Distribution Width 13.5 % (11.8-14.3) Platelet Count 230 10^3/uL (140-450) Mean Platelet Volume 7.5 fL (6.9-10.8) Neutrophils (%) (Auto) 67.2 % (37.0-80.0) Lymphocytes (%) (Auto) 20.0 % (10.0-50.0) Monocytes (%) (Auto) 9.4 % (0.0-12.0) Eosinophils (%) (Auto) 2.5 % (0.0-7.0) Basophils (%) (Auto) 0.9 % (0.0-2.0) Neutrophils # (Auto) 5.1 10 ^3/uL (1.6-8.6) Lymphocytes # (Auto) 1.5 10 ^3/uL (0.4-5.4) Monocytes # (Auto) 0.7 10 ^3/uL (0-1.3) Eosinophils # (Auto) 0.2 10 ^3/uL (0-0.8) Basophils # (Auto) 0.1 10 ^3/uL (0-0.2) Nucleated Red Blood Cells 0.0 % Sodium Level 141 mmol/L (136-145) Potassium Level 3.4 mmol/L (3.5-5.1) Chloride Level 110 mmol/L (98-107) Carbon Dioxide Level 24 mmol/L (20-31) Anion Gap 7 (5-15) Blood Urea Nitrogen 8 mg/dL (9-23) Creatinine 0.62 mg/dL (0.550-1.02) Glomerular Filtration Rate Calc 115 mL/min (>90) BUN/Creatinine Ratio 12.9 (10.0-20.0) Serum Glucose 111 mg/dL (74-106) Calcium Level 8.7 mg/dL (8.7-10.4) Total Bilirubin 0.8 mg/dL (0.2-1.0) Aspartate Amino Transferase (AST) 31 U/L (13-40) Alanine Aminotransferase (ALT) 36 U/L (7-40) Alkaline Phosphatase 62 U/L (46-116) Total Protein 5.7 g/dL (5.7-8.2) Albumin 3.7 g/dL (3.2-4.8) Urine Test Negative (Negative) Prothrombin Time 10.9 sec (9.3-11.8) Prothrombin Time INR 1.03 (0.9-1.15) Activated Partial Thromboplast Time 29.1 SEC (24.5-34.5) Test 11/01/24 05:55 11/01/24 00:12 10/31/24 23:04 10/31/24 22:45 Hemoglobin A1c 6.7 % A1C (<5.7) Triglycerides Level 147 mg/dL (< 150) Cholesterol Level 158 mg/dL (< 200) LDL Cholesterol 89 mg/dL (< 100) HDL Cholesterol 60 mg/dL (40-59) Thyroid Stimulating Hormone (TSH) 1.03 uIU/mL (0.55-4.78) Troponin I High Sensitivity < 3 ng/L (</=34) Lipase 54 U/L (12-53) Urine Color Colorless (Yellow) Urine Clarity Clear (Clear) Urine pH 6.5 (5.0-9.0) Urine Specific [place] 1.015 (1.001-1.035) Urine Protein Negative (Negative) Urine Ketones Negative (Negative) Urine Blood 2+ /uL (Negative) Urine Nitrite Negative (Negative) Urine Bilirubin Negative (Negative) Urine Urobilinogen Normal mg/dL (Negative) Urine Leukocyte Esterase Negative /uL (Negative) Urine RBC 3 /hpf (0 - 4) Urine Microscopic WBC 3 /HPF (0-5) Urine Squamous Epithelial Cells Mod /hpf (<5) Urine Amorphous Crystals Few /hpf (None Seen) Urine Bacteria Few /hpf (None Seen) Urine Glucose 3+ mg/dL (Normal) Urine Opiates Screen Neg (NEGATIVE) Urine Fentanyl Screen Neg (NEGATIVE) Urine Barbiturates Screen Neg (NEGATIVE) Urine Phencyclidine Screen Neg (NEGATIVE) Urine Amphetamines Screen Neg (NEGATIVE) Urine Benzodiazepines Screen Neg (NEGATIVE) Urine Cocaine Screen Neg (NEGATIVE) Urine Cannabinoids Screen Neg (NEGATIVE) Other Laboratory Tests 11/03/24 05:35 Brief Hx & Hospital Course: History of Present Illness 38-year-old female with past medical history of diabetes and hypertension came to the hospital due to abdominal pain for a few hours prior to admission. Patient reports right upper quadrant pain radiating into the back, constant, 10/10, and burning in nature with no exacerbating or relieving factor. She also reports nausea. She denies, fever, chest pain, shortness of breath, or any bladder or bowel habits changes. She has history of diabetes type 2, previously was taking insulin, oral antihyperglycemics and Ozempic but due to insurance changes taking no medicine at the moment. PMHx: Diabetes type 2 and hypertension PSHx: None Family history: Significant for premature coronary artery disease in father, and hypotension with diabetes in mother Social history: Drinks socially, denies any other drug use Home medication: Losartan, due to insurance changes has lost diabetic medicine (Ozempic) Allergic history: Morphine (upon using morphine develops hives and itching) Brief hospital course Patient came with a chief complaint of right upper quadrant abdominal pain associated with nausea. She underwent CT abdomen pelvis without contrast which showed cholelithiasis with mild gallbladder wall distention and when clinically correlated with symptoms high suspicion for acute cholecystitis was there. Surgery was consulted who recommended the patient to undergo cholecystectomy. Patient consented and she underwent laparoscopic cholecystectomy without any complications. Post cholecystectomy patient was started on clear liquid diet which she tolerated well and passed flatus. While in the hospital patient had hypotension for which she was given a higher dose of her home medication of losartan. Patient was then discharged in stable condition to home. Discharge plan Follow up with the PCP in 1 week and in the surgery outpatient clinic with in 2 weeks Medications: Losartan 50 mg and nifedipine 30 mg sent, ibuprofen p.r.n. for pain Advised to avoid picking up weight more than 10 lb to 2 weeks Diet: Full liquid diet for 2 days and then advanced as tolerated Consults/Reason for consult surgery consultation for suspected acute cholecystitis Operations or Procedures Operative Report - 2 Report Details Date: 11/02/24 Preop Diagnosis: 1. Cholecystitis Postop Diagnosis: 1. Same Surgeon: Angel Booker MD [employer] Manager: None Anesthesiologist: Anesthesia: General, Local Drains: None Consent: The surgery and its risks including but not limited to infection, bleeding requiring possible blood transfusion with the risk of hepatitis or HIV infection, possible open surgery, possible cystic duct leak or retained common bile duct stone requiring further intervention such as an ERCP, possible perioperative MT or stroke were explained to the patient. All questions were answered to her satisfaction. She expressed verbal understanding and wished to proceed with the surgery. Complications: None Estimated Blood Loss: 10 mL Fluids: 600 mL Name of Procedure Performed Laparoscopic cholecystectomy Procedure Details Procedure Details: After induction of general anesthesia, patient's abdomen was prepped and draped in standard surgical fashion. A small infraumbilical incision was made and this incision was taken through the abdominal wall down to the fascia which was opened sharply. Peritoneum was then bluntly divided gaining access to the intra-abdominal cavity. Interrupted 0 Vicryl sutures were placed through the fascial incision and using an open technique, Yi trocar was introduced and secured using the Vicryl sutures. Abdomen was insufflated to 15 mmHg and camera was inserted. Visual examination of the intestine under the fascial incision appeared normal without injury. Under direct visualization, a 5 mm bladeless trocar was placed in the subxiphoid region and two additional 5 mm bladeless trocars were placed in the right upper quadrant all under direct visualization. Examination of the right upper quadrant revealed edematous and distended gallbladder. An endo needle was used to 1st decompress the gallbladder with bilious drainage. Once the gallbladder was decompressed, it was grasped and retracted in a cephalad direction. Infundibulum was retracted laterally and careful blunt dissection was performed to identify the cystic duct which appeared normal in size. This was clipped and divided using Endoclips without complication. Cystic artery was located just next to the cystic duct and this was also clipped and divided using Endoclips without complication. Gallbladder was then removed from the liver bed using electrocautery. There was no bile or stone spillage during the maneuver. Gallbladder was then removed from the abdominal cavity using an endo pouch bag and sent off the surgical field. Abdomen was then re-insufflated and hemostasis in the liver bed was achieved using electrocautery. Right upper quadrant was then well irrigated until fluid was clear. Trocars were then removed under direct visualization as the abdomen was deflated. Additional interrupted 0 Vicryl sutures were placed through the infraumbilical fascial incision and the sutures were tied down closing off the infraumbilical fascia. Surgical sites were irrigated injected with 20 mL of 1% lidocaine with epinephrine. Skin incisions were closed using 4-0 Monocryl sutures in subcuticular fashion. Surgical sites were cleaned and dried and dressings were applied. Sponge, needle, instrument count at the end of the case were reported to be correct by the nursing staff. The patient tolerated procedure well and was awakened, extubated and transferred to recovery in stable condition. Specimen: Gallbladder Condition Stable ANGEL BOOKER MD Nov 02, 2024 14:24 Condition at Discharge: Good Final Diagnosis/Problems List # cholelithiasis # biliary colic # probable Acute cholecystitis # type 2 diabetes mellitus with hyperglycemia # uncontrolled hypertension Discharge Disposition: Home Discharge Instruct/Medications Diet: See Comment Diet comment: continue on full liquid diet for 2 days and then advance diet as tolerated Activity: Light activity Activity comment: Avoid lifting weight more than 10 pounds for 2 weeks Follow Up/Referral: Follow up with the PCP in 1 week Follow with surgery outpatient clinic in 2 weeks Medications: as per EMR Discharge Statement: "Patient was advised to return to the ER or call 911 if any headaches, dizziness, shortness of breath, chest pain, abdominal pain, bleeding, fevers, or worsening of medical condition. Patient was counseled about treatment plan, medications, possible side effects, patientverbalized understanding. All questions were answered to the best of my ability. This discharge took greater then 30 minutes in planning, reviewing documentation, counseling the patient, and discussing with other team members." ASSESSMENT ASSESSMENT Assessment 1. Same Date of Service: Nov 03, 2024 Billing Provider: MIHAI HORN MD Common Visit Codes: 80161-WUP/OBS DISCH DAY >30min JABARI CALI RESIDENT Nov 03, 2024 21:31 MIHAI HORN MD Nov 05, 2024 10:11
== END 2024-11-03 18:51 | disposition home or self-care (01) | DRG 418 ==
LOC: ER 22:34 → OVERFLOW 11-01 03:04 → EAST 11-01 15:21
PROVIDERS: ADMIT Student in an Organized Health Care Education/Training Program; ATTEND Student in an Organized Health Care Education/Training Program
PROC: 0FT44ZZ Resection of Gallbladder, Percutaneous Endoscopic Approach (ICD-10-PCS; principal; 2024-11-02 12:10)
DX: K80.00 Calculus of gallbladder with acute cholecystitis without obstruction (principal); I16.9 Hypertensive crisis, unspecified; I10 Essential (primary) hypertension; E11.65 Type 2 diabetes mellitus with hyperglycemia; Z82.49 Family history of ischemic heart disease and other diseases of the circulatory system; Z83.3 Family history of diabetes mellitus; Z79.899 Other long term (current) drug therapy; Z90.49 Acquired absence of other specified parts of digestive tract
CPT/HCPCS: 36415; 74176; 76705; 80053; 80061; 80307; 81001; 81025; 82962; 83036; 83690; 84443; 84484; 85025; 85610; 85730; 86850; 86900; 86901; 93005; 96374; 96375; G0378; J0330; J1100; J1815; J1885; J2250; J2405; J2470